=== PATIENT | male | born 1975 | race African-American/Black ===

== ENCOUNTER 2019-08-04 18:24 | Observation (INO) ==
[2019-08-04] MEDS ORDERED: MORPHINE 4 MG/1 ML VIAL IV STA (18:42)
[2019-08-04] MEDS ORDERED: LACTATED RINGERS 1,000 ML IV STA (18:42)
[2019-08-04] MEDS ORDERED: DIPHTHERIA/TETANUS ADULT VACCINE 0.5 ML SYRINGE IM ONE (18:42)
[2019-08-04] MEDS ORDERED: ONDANSETRON 4 MG/2 ML VIAL IV STA (18:42)
[2019-08-04 19:01] LABS: Basophils % 0.4 % (0.0-0.8); Eosinophils # 0.3 10*3/uL (0.0-0.87); Eosinophils % 2.6 % (0.00-10.9); Hematocrit 43.2 VOL% (42.0-52.0); Hemoglobin 14.4 GM/DL (14.0-18.0); Immature Granulocytes % 0.6 %; Immature Granulocytes Absolute 0.06 #; Lymphocytes # 2.7 10*3/uL (1.4-4.0); Lymphocytes % 26.9 % (21.2-54.2); Mean Corpuscular HGB Conc 33.3 GM/DL (32-36); Mean Corpuscular Volume 93.9 FL (87-102); Mean Platelet Volume 10.9 FL (9.6-12.0); Monocytes % 7.4 % (1.7-12.7); Neutrophils % 62.1 % (38.7-73.9); Platelet Count 161 T/CUMM (130-400); Red Cell Distribution Width 12.8 % (9.3-17.3); White Blood Count 10.1 T/CUMM (4-12)
[2019-08-04 19:09] LABS: INR 0.9; PT Patient Result 10.1 SECS (9.6-12.2); Partial Thromboplastin Time 22.7 SECS (20.8-36.0)
[2019-08-04] MEDS ORDERED: SODIUM CHLORIDE 0.9% 2,000 ML IV STA (19:31)
[2019-08-04 19:35] LABS: Alanine Aminotransferase 40 U/L (16-61); Albumin 3.7 G/DL (3.4-5.0); Alkaline Phosphatase 80 U/L (45-117); Aspartate Amino Transferase 30 U/L (0-37); Bilirubin,Total < 0.39 MG/DL (0.2-1.0); Blood Urea Nitrogen 19 MG/DL (7-18); Calcium 8.8 MG/DL (8.5-10.1); Estimated Glom Filtration Rate 96 ML/MIN; Glucose 123 MG/DL (74-106); Total Protein 7.4 G/DL (6.4-8.3)
[2019-08-04] MEDS ORDERED: LIDOCAINE 1% 20 ML VIAL INFILTRAT STA (19:36)
[2019-08-04] MEDS ORDERED: LIDOCAINE 1%/EPI INJ 20 ML VIAL INFILTRAT STA (19:38)
[2019-08-04 20:09] LABS: Apearance,Urine CLEAR (Clear); Bilirubin,Urine Negative (Negative); Blood, Urine Small mg/dL (Negative); Glucose,Urine (UA) Negative (Negative); Ketones,Urine Negative (Negative); Nitrite,Urine Negative (Negative); Protein,Urine 100 MG/DL; RBC,Urine 3 /HPF (0-4); Urine Color Straw (Yellow); Urine Specific Gravity 1.018 (1.001-1.035); Urine Urobilinogen < 2.0 EU/DL (0.2-1.0); WBC,Urine 3 /HPF (0-6)
[2019-08-04 20:30] LABS: Barbiturates Screen,Urine Negative (Negative); Benzodiazepines Screen,Urine Negative (Negative); Cannabinoid Screen,Urine Negative (Negative); Opiate Screen,Urine Negative (Negative); Phencyclidine Screen,Urine Negative (Negative)
[2019-08-04] MEDS ORDERED: ONDANSETRON 4 MG/2 ML VIAL IV PRN (22:57)
[2019-08-04] MEDS ORDERED: ACETAMINOPHEN 325 MG TABLET PO PRN (22:57)
[2019-08-05] MEDS: DEXTROSE 5% LACTATED RINGERS 1,000 ML IV SCH ×3 (02:13→17:33)
[2019-08-05] MEDS ORDERED: amLODIPine 5 MG TABLET PO SCH (10:00)
[2019-08-05] MEDS: PANTOPRAZOLE 40 MG VIAL IV SCH (10:14)
[2019-08-05] MEDS: hydrALAZINE 20 MG/1 ML VIAL IV PRN ×3 (10:33→23:59)
[2019-08-05] MEDS ORDERED: amLODIPine 5 MG TABLET PO ONE (15:32)
[2019-08-05] MEDS ORDERED: SODIUM CHLORIDE 0.9% 1,000 ML IV SCH (17:00)
[2019-08-05] MEDS ORDERED: LABETALOL 100 MG/20 ML VIAL IV ONE (19:10)
[2019-08-06] MEDS ORDERED: LABETALOL 100 MG/20 ML VIAL IV ONE (01:30)
[2019-08-06] MEDS ORDERED: LABETALOL 20 MG/4 ML SYRINGE IV ONE (01:30)
[2019-08-06 05:15] LABS: Calcium 8.7 MG/DL (8.5-10.1); Osmolality,Calculated 274.7 MOS/KG (273-304)
[2019-08-06] MEDS: hydrALAZINE 20 MG/1 ML VIAL IV PRN ×3 (06:15→23:43)
[2019-08-06] MEDS ORDERED: MAGNESIUM OXIDE 400 MG TABLET PO ONE (07:01)
[2019-08-06] MEDS: hydroCHLOROthiazide 25 MG TABLET PO SCH (09:40)
[2019-08-06] MEDS: amLODIPine 10 MG TABLET PO SCH (09:40)
[2019-08-06] MEDS: PANTOPRAZOLE 40 MG VIAL IV SCH (09:41)
[2019-08-06] MEDS ORDERED: MAGNESIUM SULF RIDER 2 GM in PREMIX 1 EACH IV PRN (10:33)
[2019-08-06] MEDS ORDERED: MAGNESIUM SULF RIDER 4 GM in PREMIX 1 EACH IV PRN (10:33)
[2019-08-06] MEDS: carvediloL 6.25 MG TABLET PO SCH ×2 (15:35→20:41)
[2019-08-06] MEDS ORDERED: carvediloL 6.25 MG TABLET PO SCH (21:00)
[2019-08-07 05:26] LABS: Basophils % 0.2 % (0.0-0.8); Eosinophils # 0.3 10*3/uL (0.0-0.87); Eosinophils % 2.7 % (0.00-10.9); Hematocrit 42.2 VOL% (42.0-52.0); Hemoglobin 14.1 GM/DL (14.0-18.0); Immature Granulocytes % 0.4 %; Immature Granulocytes Absolute 0.04 #; Lymphocytes # 1.7 10*3/uL (1.4-4.0); Lymphocytes % 18.1 % (21.2-54.2); Mean Corpuscular HGB Conc 33.4 GM/DL (32-36); Mean Corpuscular Volume 93.2 FL (87-102); Mean Platelet Volume 10.7 FL (9.6-12.0); Monocytes % 8.5 % (1.7-12.7); Neutrophils % 70.1 % (38.7-73.9); Platelet Count 142 T/CUMM (130-400); Red Blood Count 4.53 MC/CUMM (3.8-5.5); Red Cell Distribution Width 12.8 % (9.3-17.3); White Blood Count 9.3 T/CUMM (4-12)
[2019-08-07 05:43] LABS: Calcium 9.1 MG/DL (8.5-10.1)
[2019-08-07] MEDS: hydrALAZINE 20 MG/1 ML VIAL IV PRN (08:04)
[2019-08-07] MEDS: hydroCHLOROthiazide 25 MG TABLET PO SCH (09:13)
[2019-08-07] MEDS: amLODIPine 10 MG TABLET PO SCH (09:13)
[2019-08-07] MEDS: carvediloL 6.25 MG TABLET PO SCH (09:14)
[2019-08-07] MEDS: PANTOPRAZOLE 40 MG VIAL IV SCH (09:14)
[2019-08-07 12:06] VITALS: BP 175/108
== END 2019-08-07 12:05 | disposition home or self-care (01) ==
LOC: N.ED 18:24 → N.EDINP 18:24 → N.3E 08-05 01:10
PROVIDERS: ADMIT Surgery; ATTEND Surgery